=== PATIENT | male | born 1975 | race Caucasian/White ===

== ENCOUNTER 2017-01-23 20:17 | Emergency (ER) | payer SELFPAY ==
[~2017-01-23] VITALS: Ht 200.7 cm; Wt 80.0 kg
[2017-01-23 20:58] VITALS: BP 128/87
== END 2017-01-24 | disposition left against medical advice (07) ==
LOC: ER 20:18
DX: R20.2 Paresthesia of skin (principal); R53.1 Weakness; R42 Dizziness and giddiness

== ENCOUNTER 2017-10-28 09:36 | Emergency (ER) | payer MEDICAID ==
[~2017-10-28] VITALS: Ht 177.8 cm; Wt 100.0 kg
[2017-10-28 09:46] VITALS: BP 110/69
== END 2017-10-28 17:23 | disposition left against medical advice (07) ==
LOC: ER 10:23
DX: Z53.21 Procedure and treatment not carried out due to patient leaving prior to being seen by health care provider (principal)